=== PATIENT | female | born 1950 | race American Indian/Alaskan Native ===

== ENCOUNTER 2016-06-07 11:43 | Outpatient (CLI) | payer MEDICARE ==
--- NOTE | 2016-06-07 14:01 | XRay Report ---
CHEST 2 VIEWS INDICATION: Cough, abnormal kidney function. COMPARISON: None similar. FINDINGS: PA and lateral chest radiographs demonstrate post CABG changes. Normal cardiomediastinal silhouette, though mild descending aortic tortuosity/uncoiling possible. Left mid to lower lung scarring with nonspecific left lateral costophrenic angle blunting on the frontal view, presumed pleural thickening in the given setting rather than fluid. No other large pleural effusions or CHF. Approximately 7 mm presumed extreme right lung base calcified granuloma on the frontal view, though not accurately localized on the lateral. CONCLUSION: No definite acute chest process in this patient with presumed left mid to lower lung chronic changes/scarring from a prior CABG and old healed granulomatous disease, as described. Direct comparison with prior imaging would also be helpful, if available. Thank you for the opportunity to participate in this patient's care.
== END 2016-06-07 11:44 | disposition home or self-care (01) ==
LOC: XRAY 11:43
PROVIDERS: ATTEND Internal Medicine Nephrology
DX: R05 Cough (principal); R94.4 Abnormal results of kidney function studies; J84.10 Pulmonary fibrosis, unspecified; Z95.1 Presence of aortocoronary bypass graft
CPT/HCPCS: 71020